=== PATIENT | female | born 1940 | race Caucasian/White ===

== ENCOUNTER 2018-01-04 08:03 | Emergency (ER) | payer OTHER ==
[~2018-01-04] VITALS: Ht 157.5 cm; Wt 61.2 kg
[2018-01-04] MEDS ORDERED: SYNTHROID50 MCG PO (08:23)
[2018-01-04] MEDS ORDERED: PRADAXA150 MG PO (08:23)
[2018-01-04] MEDS ORDERED: LIPITOR40 MG PO (08:24)
[2018-01-04] MEDS ORDERED: ASPIR 8181 MG PO (08:24)
[2018-01-04] MEDS ORDERED: DILTIAZEM 24HR180 M2 PO (08:25)
[2018-01-04 08:55] LABS: ABSOLUTE BASOPHILS 0.1 thou/uL (0.0-0.2); ABSOLUTE EOSINOPHILS 0.2 thou/uL (0.0-0.7); ABSOLUTE LYMPHOCYTES 1.4 thou/uL (0.8-5.3); ABSOLUTE MONOCYTES 0.4 thou/uL (0.0-1.2); ABSOLUTE NEUTROPHILS 5.9 thou/uL (1.6-8.1); EOSINOPHILS 2.5 %; HEMATOCRIT 36.8 % (37.0-47.0); HEMOGLOBIN 12.5 gm/dL (12.0-15.0); MCH 32.1 pg (26.0-34.0); MCHC 33.9 g/dL (28.0-37.0); MCV 94.5 fL (80.0-100.0); MONOCYTES 5.4 %; MPV 8.4 fl. (7.2-11.1); NUCLEATED RBCS 0 /100WBC; PLATELET COUNT* 183 thou/uL (150-400); POLYS 73.1 %; WBC 8.1 thou/uL (4.0-11.0)
[2018-01-04 09:05] LABS: APTT 38.9 Seconds (25.0-31.3); CALCIUM 8.1 mg/dL (8.5-10.1); CREATININE 0.7 mg/dL (0.6-1.3); INR 1.2; POTASSIUM 3.8 mmol/L (3.5-5.1); PROTIME 11.4 Seconds (9.20-11.50)
[2018-01-04 09:09] LABS: ALBUMIN 3.2 g/dL (3.4-5.0); TOTAL BILIRUBIN 0.4 mg/dL (<0.1-1.0); TOTAL PROTEIN 6.9 g/dL (6.4-8.2)
[2018-01-04 09:30] VITALS: BP 115/73
== END 2018-01-04 09:31 | disposition home or self-care (01) ==
LOC: M.ERS 08:03
PROVIDERS: Personal Emergency Response Attendant
DX: R04.0 Epistaxis (principal); I48.91 Unspecified atrial fibrillation; F17.200 Nicotine dependence, unspecified, uncomplicated

== ENCOUNTER 2018-01-05 23:10 | Emergency (ER) | payer OTHER ==
[~2018-01-05] VITALS: Ht 157.5 cm; Wt 59.0 kg
[~2018-01-05 23:10] MED LIST: ASPIR 8181 MG PO; DILTIAZEM 24HR180 M2 PO; LIPITOR40 MG PO; PRADAXA150 MG PO; SYNTHROID50 MCG PO
[2018-01-06 00:13] VITALS: BP 109/59
== END 2018-01-06 00:14 | disposition home or self-care (01) ==
LOC: M.ERS 23:10
DX: R04.0 Epistaxis (principal); I48.91 Unspecified atrial fibrillation; F17.200 Nicotine dependence, unspecified, uncomplicated

== ENCOUNTER 2018-01-06 07:02 | Emergency (ER) | payer OTHER ==
[~2018-01-06] VITALS: Ht 157.5 cm; Wt 59.0 kg
[2018-01-06 09:13] LABS: ABSOLUTE BASOPHILS 0.1 thou/uL (0.0-0.2); ABSOLUTE LYMPHOCYTES 1.1 thou/uL (0.8-5.3); ABSOLUTE MONOCYTES 0.5 thou/uL (0.0-1.2); ABSOLUTE NEUTROPHILS 7.6 thou/uL (1.6-8.1); BASOPHILS 0.6 %; EOSINOPHILS 0.5 %; HEMATOCRIT 31.9 % (37.0-47.0); HEMOGLOBIN 10.8 gm/dL (12.0-15.0); LYMPHOCYTES 11.7 %; MCH 32.2 pg (26.0-34.0); MCHC 33.8 g/dL (28.0-37.0); MCV 95.4 fL (80.0-100.0); MONOCYTES 5.3 %; MPV 8.9 fl. (7.2-11.1); NUCLEATED RBCS 0 /100WBC; PLATELET COUNT* 179 thou/uL (150-400); POLYS 81.9 %; RBC 3.34 mil/uL (4.20-5.00); WBC 9.2 thou/uL (4.0-11.0)
[2018-01-06 09:18] LABS: CALCIUM 8.6 mg/dL (8.5-10.1); CREATININE 0.9 mg/dL (0.6-1.3); POTASSIUM 3.9 mmol/L (3.5-5.1)
[2018-01-06 09:22] LABS: ALBUMIN 3.3 g/dL (3.4-5.0); TOTAL BILIRUBIN 0.4 mg/dL (<0.1-1.0); TOTAL PROTEIN 6.9 g/dL (6.4-8.2)
[2018-01-06 09:51] VITALS: BP 133/63
== END 2018-01-06 09:52 | disposition home or self-care (01) ==
LOC: M.ERS 07:02
PROVIDERS: Personal Emergency Response Attendant
DX: R04.0 Epistaxis (principal); I48.91 Unspecified atrial fibrillation